=== PATIENT | female | born 1950 | race Two or more races ===

== ENCOUNTER 2020-05-11 06:00 | Day surgery (SDC) | payer OTHER ==
[~2020-05-11 06:00] MED LIST: CLONAZEPAM2 MG PO; CRESTOR10 MG PO; HORIZANT300 MG PO; METOPOROL PO; SEROQUEL200 MG PO
== END 2020-05-11 11:30 | disposition home or self-care (01) ==
LOC: CIR.AMB 06:00
PROVIDERS: ATTEND Colon & Rectal Surgery
DX: R15.9 Full incontinence of feces (principal); Z20.828 Contact with and (suspected) exposure to other viral communicable diseases
CPT/HCPCS: 64590; 95971; L8679

== ENCOUNTER 2020-10-03 08:39 | Day surgery (SDC) | payer OTHER | END 2020-10-03 14:45 | disposition home or self-care (01) | LOC: AMB-ENDOS 08:39 | PROVIDERS: ATTEND Colon & Rectal Surgery | DX: K62.89 Other specified diseases of anus and rectum (principal); K62.7 Radiation proctitis; K64.8 Other hemorrhoids; Z20.822 Contact with and (suspected) exposure to COVID-19; Z12.11 Encounter for screening for malignant neoplasm of colon ==

== ENCOUNTER 2025-03-29 12:37 | Inpatient (IN) | payer OTHER ==
[~2025-03-29] VITALS: Ht 149.9 cm; Wt 54.4 kg
--- NOTE | 2025-03-29 13:46 | NUR ---
PACIENTE ALERTA Y ORIENTADA X3. REFIERE COMENZAR CON ESTRENIMIENTO DESDE HACE UNOS FREEMAN Y RETENCION URINARIA DESDE HOY. SE CHRISTOPHER S/V Y SE UBICA.
[2025-03-29] MEDS ORDERED: METRONIDAZOLE/SODIUM CHLORIDE 500 MG/100 ML PIGGYBACK IV ONE (15:30)
[2025-03-29] MEDS ORDERED: CIPROFLOXACIN IN 5 % DEXTROSE 400 MG/200 ML PIGGYBAG IV ONE (15:30)
[2025-03-29] MEDS ORDERED: FAMOTIDINE/PF 20 MG/2 ML VIAL IV ONE (15:30)
[2025-03-29] MEDS ORDERED: 0.9 % SODIUM CHLORIDE 1,000 ML IV SCH (15:30)
[2025-03-29] MEDS ORDERED: MORPHINE SULFATE 4 MG/ML CARTRIDGE IV ONE (15:30)
[2025-03-29] MEDS ORDERED: DIATRIZOATE MEGLUMINE, SODIUM 30 ML BOTTLE PO ONE (15:45)
--- NOTE | 2025-03-29 15:53 | NUR ---
SE LE ORIENTA A PACIENTE SOBRE LA ORDEN MEDICA, REFIERE ENTEDER LAS MISMAS. SE CANALIZA Y SE LE COLOCA EL IVF'S, SE LE CHRISTOPHER LAS MUETRAS Y SE LE ADMINISTRAN LOS MEDICAMENTOS MINDA LA ORDEN.
[2025-03-29 16:19] LABS: BASO % 0.2 % (0.1-1.2); EOS # 0.00 (0.04-0.54); EOS % 0.0 % (0.7-7.0); LYMPH # 0.50 (1.18-3.74); LYMPH % 2.7 % (19.3-53.1); MEAN PLATELET VOLUME 11.30 fl (9.4-12.4); MONO # 0.90 (0.24-0.82); MONO % 4.9 % (4.7-12.5); NEUT # 17.02 (1.56-6.13); NEUT % 91.7 % (34.0-71.1); RED CELL DISTRIBUTION WIDTH 12.4 % (11.6-14.4)
[2025-03-29 16:27] LABS: ERYTHROCYTE SEDIMENTATION RATE 8 mm/hr (0-30)
[2025-03-29 16:46] LABS: INR 1.05
[2025-03-29 16:53] LABS: ALT/SGPT 25.0 U/L (12-78); AST/SGOT 21.0 U/L (15-37); BILIRUBIN TOTAL 0.38 mg/dL (0.3-1.2); BUN CREA RATIO 21.0 (7.0-25.0); CREATININE SERUM 0.85 mg/dL (0.55-1.02); GFR 65.56; GLOBULINA 3.2 G/DL (2.4-3.5); GLUCOSE FASTING 132.0 mg/dL (65-100); OSMOLALITY SERUM 281.0 MOSM/KG (275-295)
--- NOTE | 2025-03-29 16:55 | NUR ---
SE ORIENTA A PACIENTE SOBRE LA MORPHINE DE TAMMY ALERGICA Y LA MISMA REFIERE Q NO Q LA QUIERE.
[2025-03-29 17:16] LABS: URINE APPEARANCE Clear; URINE BILIRRUBIN Negative (NEGATIVE); URINE COLOR Yellow; URINE KETONE Negative (NEGATIVE); URINE LEUKOCYTE Negative; URINE NITRATE Negative; URINE PROTEIN Negative (NEGATIVE); URINE UROBILINOGEN 0.2 E.U./dl
[2025-03-29 17:21] LABS: URINE RBC 26.8 uL (0.0-20.8)
[2025-03-29 17:39] LABS: URINE GLUCOSE 100 MG/DL (NEGATIVE); URINE WBC 1.2 uL (0.0-23.2)
[2025-03-29 17:40] LABS: URINE BACTERIA 3.5 uL (0.0-1933); URINE BLOOD Trace; URINE CAST 0.14 uL (0.0-1.40); URINE EPITHELIAL CELLS 0.7 uL (0.0-38.8)
[2025-03-29 20:10] LABS: ob POSITIVE (NEGATIVE)
[2025-03-29] MEDS ORDERED: ACETAMINOPHEN 500 MG GEL..CAP PO ONE (21:30)
--- NOTE | 2025-03-30 | NUR ---
SE RECIBE PTE ALERTA Y ORIENTADA X3 EN OBSERVACION, CANALIZADA Y IV FLUIDS BAJANDO. PTE CON CROWELL CATHETER CONSULTADA CON MEDICINA INTERNA.
[2025-03-30] MEDS ORDERED: MORPHINE SULFATE 4 MG/ML CARTRIDGE IV STA (03:09)
[2025-03-30] MEDS ORDERED: HYOSCYAMINE SULFATE 0.125 MG TAB.SUBL SL ONE (03:15)
[2025-03-30] MEDS ORDERED: ACETAMINOPHEN 325 MG TABLET PO PRN (12:15)
[2025-03-30] MEDS ORDERED: ONDANSETRON HCL 4 MG in 0.9 % SODIUM CHLORIDE 50 ML IV PRN (12:15)
[2025-03-30] MEDS ORDERED: hydrALAZINE HCL 20 MG VIAL IV PRN (12:15)
[2025-03-30] MEDS ORDERED: MORPHINE SULFATE 2 MG/ML SYRINGE IV PRN (12:15)
[2025-03-30 13:17] VITALS: BP 114/60
[2025-03-30] MEDS ORDERED: PIPERACILLIN/TAZOBACTAM SODIUM 3.375 GM in 0.9 % SODIUM CHLORIDE 100 ML IV SCH (18:00)
[2025-03-30] MEDS ORDERED: TAMSULOSIN HCL 0.4 MG CAP PO STA (19:06)
[2025-03-30] MEDS ORDERED: TAMSULOSIN HCL 0.4 MG CAP PO SCH (19:06)
[2025-03-30] MEDS ORDERED: CLONAZEPAM 1 MG TABLET PO SCH (21:00)
[2025-03-30] MEDS ORDERED: ROSUVASTATIN CALCIUM 20 MG TABLET PO SCH (21:00)
[2025-03-30] MEDS ORDERED: PATIENTS OWN MEDICATION (MEDICAMENTO EN PISO) PO SCH (21:00)
[2025-03-30] MEDS ORDERED: QUETIAPINE FUMARATE 25 MG TABLET PO SCH (21:00)
[2025-03-31 03:37] VITALS: BP 104/67; O2SAT 95
[2025-03-31 06:21] LABS: BASO % 0.1 % (0.1-1.2); EOS # 0.01 (0.04-0.54); EOS % 0.1 % (0.7-7.0); LYMPH # 0.81 (1.18-3.74); LYMPH % 4.8 % (19.3-53.1); MEAN PLATELET VOLUME 12.10 fl (9.4-12.4); MONO # 1.24 (0.24-0.82); MONO % 7.4 % (4.7-12.5); NEUT # 14.66 (1.56-6.13); NEUT % 87.1 % (34.0-71.1); RED CELL DISTRIBUTION WIDTH 13.2 % (11.6-14.4)
[2025-03-31 06:49] LABS: ERYTHROCYTE SEDIMENTATION RATE 37 mm/hr (0-30)
[2025-03-31 07:06] LABS: ALT/SGPT 26.0 U/L (12-78); AST/SGOT 33.0 U/L (15-37); BILIRUBIN TOTAL 0.74 mg/dL (0.3-1.2); BUN CREA RATIO 19.0 (7.0-25.0); CREATININE SERUM 0.72 mg/dL (0.55-1.02); GFR 79.4; GLOBULINA 2.7 G/DL (2.4-3.5); GLUCOSE FASTING 65.0 mg/dL (65-100); OSMOLALITY SERUM 282.0 MOSM/KG (275-295)
[2025-03-31] MEDS ORDERED: FAMOTIDINE/PF 20 MG/2 ML VIAL IV SCH (09:00)
[2025-03-31] MEDS ORDERED: LACTOBACILLUS ACIDOPHILUS 1 CAP CAP PO SCH (09:00)
[2025-03-31] MEDS ORDERED: METOPROLOL SUCCINATE 25 MG TAB.SR.24H PO SCH (09:00)
[2025-03-31 09:22] VITALS: BP 108/60; O2SAT 94
[2025-03-31] MEDS ORDERED: POTASSIUM PHOS,M-BASIC-D-BASIC 15 MM in 0.9 % SODIUM CHLORIDE 250 ML IV STA (10:58)
[2025-03-31] MEDS ORDERED: NAPH,MB-DB/K PH,MBDB 1 PKT PACKET PO SCH (13:00)
[2025-03-31] MEDS ORDERED: ACETAMINOPHEN 500 MG GEL..CAP PO PRN (13:15)
[2025-03-31] MEDS ORDERED: SIMETHICONE 125 MG CAPSULE PO SCH (17:00)
[2025-03-31 18:29] VITALS: BP 130/66; O2SAT 96
[2025-04-01 03:59] VITALS: BP 119/66; O2SAT 95
[2025-04-01 07:50] LABS: BASO % 0.3 % (0.1-1.2); EOS # 0.04 (0.04-0.54); EOS % 0.4 % (0.7-7.0); LYMPH # 1.44 (1.18-3.74); LYMPH % 13.7 % (19.3-53.1); MEAN PLATELET VOLUME 11.80 fl (9.4-12.4); MONO # 0.82 (0.24-0.82); MONO % 7.8 % (4.7-12.5); NEUT # 8.13 (1.56-6.13); NEUT % 77.4 % (34.0-71.1); RED CELL DISTRIBUTION WIDTH 13.0 % (11.6-14.4)
[2025-04-01 07:53] LABS: BUN CREA RATIO 12.0 (7.0-25.0); CREATININE SERUM 0.67 mg/dL (0.55-1.02); GFR 86.27; GLUCOSE FASTING 78.0 mg/dL (65-100); OSMOLALITY SERUM 286.0 MOSM/KG (275-295)
[2025-04-01] MEDS ORDERED: BARIUM SULFATE 450 ML ORAL.SUSP PO ONE (10:00)
[2025-04-01 10:08] VITALS: BP 109/64; O2SAT 96
[2025-04-01 12:45] LABS: ob POSITIVE (NEGATIVE)
[2025-04-01] MEDS ORDERED: POTASSIUM PHOS,M-BASIC-D-BASIC 15 MM in 0.9 % SODIUM CHLORIDE 250 ML IV ONE (17:00)
[2025-04-01 18:14] VITALS: BP 126/68
[2025-04-01] MEDS ORDERED: LOPERAMIDE HCL 2 MG CAPSULE PO STA (20:04)
[2025-04-01] MEDS ORDERED: LOPERAMIDE HCL 2 MG CAPSULE PO PRN (20:15)
[2025-04-02 02:27] VITALS: BP 114/56; O2SAT 96
[2025-04-02 10:22] VITALS: BP 116/67; O2SAT 98
[2025-04-02] MEDS ORDERED: POTASSIUM PHOS,M-BASIC-D-BASIC 9 MM in 0.9 % SODIUM CHLORIDE 250 ML IV ONE (17:00)
[2025-04-02 18:22] VITALS: BP 135/75
[2025-04-03 02:33] VITALS: BP 108/70
[2025-04-03 06:10] LABS: BASO % 0.9 % (0.1-1.2); EOS # 0.20 (0.04-0.54); EOS % 3.5 % (0.7-7.0); LYMPH # 1.63 (1.18-3.74); LYMPH % 28.7 % (19.3-53.1); MEAN PLATELET VOLUME 10.80 fl (9.4-12.4); MONO # 0.42 (0.24-0.82); MONO % 7.4 % (4.7-12.5); NEUT # 3.34 (1.56-6.13); NEUT % 58.8 % (34.0-71.1); RED CELL DISTRIBUTION WIDTH 13.2 % (11.6-14.4)
[2025-04-03 06:52] LABS: BUN CREA RATIO 8.0 (7.0-25.0); CREATININE SERUM 0.62 mg/dL (0.55-1.02); GFR 94.35; GLUCOSE FASTING 87.0 mg/dL (65-100); OSMOLALITY SERUM 289.0 MOSM/KG (275-295)
[2025-04-03 08:38] VITALS: BP 124/73; O2SAT 99
[2025-04-03] MEDS ORDERED: CHOLESTYRAMINE/ASPARTAME LIGHT 4 G/PKT PACKET PO STA (13:20)
[2025-04-03 18:10] VITALS: BP 152/70
[2025-04-04 02:30] VITALS: BP 125/67; O2SAT 97
[2025-04-04] MEDS ORDERED: CHOLESTYRAMINE/ASPARTAME LIGHT 4 G/PKT PACKET PO PRN (06:00)
[2025-04-04] MEDS ORDERED: ENOXAPARIN SODIUM 40 MG/0.4 ML SYRINGE SUBCUTANEO SCH (09:00)
[2025-04-04 09:17] VITALS: BP 132/73; O2SAT 97
[2025-04-04 17:55] VITALS: BP 130/70
[2025-04-05 02:46] VITALS: BP 103/63; O2SAT 94
[2025-04-05 06:20] LABS: BASO % 0.8 % (0.1-1.2); EOS # 0.41 (0.04-0.54); EOS % 6.5 % (0.7-7.0); LYMPH # 1.59 (1.18-3.74); LYMPH % 25.1 % (19.3-53.1); MEAN PLATELET VOLUME 10.00 fl (9.4-12.4); MONO # 0.64 (0.24-0.82); MONO % 10.1 % (4.7-12.5); NEUT # 3.56 (1.56-6.13); NEUT % 56.2 % (34.0-71.1); RED CELL DISTRIBUTION WIDTH 12.7 % (11.6-14.4)
[2025-04-05 07:10] LABS: BUN CREA RATIO 11.0 (7.0-25.0); CREATININE SERUM 0.85 mg/dL (0.55-1.02); GFR 65.56; GLUCOSE FASTING 84.0 mg/dL (65-100); OSMOLALITY SERUM 283.0 MOSM/KG (275-295)
[2025-04-05 09:03] VITALS: BP 120/75; O2SAT 97
[2025-04-05 17:54] VITALS: BP 129/73
[2025-04-06 01:53] VITALS: BP 116/73; O2SAT 97
[2025-04-06 08:52] VITALS: BP 120/70; O2SAT 98
[2025-04-06] MEDS ORDERED: SIMETHICONE125 M1 PO (14:28)
[2025-04-06] MEDS ORDERED: LOPERAMIDE2 MG PO (14:28)
[2025-04-06] MEDS ORDERED: INTESTINEX680 M1 PO (14:28)
[2025-04-06] MEDS ORDERED: CHOLESTYRAMINE L4 GM PO (14:28)
== END 2025-04-06 15:48 | disposition home or self-care (01) | DRG 392 ==
LOC: ER 12:37 → SEC-K 03-30 12:33 → MEDJ 03-30 12:33
PROVIDERS: Colon & Rectal Surgery; General Practice; Student in an Organized Health Care Education/Training Program; ADMIT Internal Medicine; ATTEND Internal Medicine
PROC: BW21YZZ Computerized Tomography (CT Scan) of Abdomen and Pelvis using Other Contrast (ICD-10-PCS; principal; 2025-03-29)
DX: K52.89 Other specified noninfective gastroenteritis and colitis (principal); K59.00 Constipation, unspecified; K62.7 Radiation proctitis; R33.9 Retention of urine, unspecified; D72.829 Elevated white blood cell count, unspecified; E83.39 Other disorders of phosphorus metabolism; I10 Essential (primary) hypertension; E78.5 Hyperlipidemia, unspecified; Z85.038 Personal history of other malignant neoplasm of large intestine; Z92.21 Personal history of antineoplastic chemotherapy; Z92.3 Personal history of irradiation; Z88.6 Allergy status to analgesic agent; Z88.1 Allergy status to other antibiotic agents; Z87.891 Personal history of nicotine dependence